=== PATIENT | male | born 1995 | race Caucasian/White ===

== ENCOUNTER 2017-01-13 03:18 | Emergency (ER) | payer OTHER | END 2017-01-13 04:50 | disposition left against medical advice (07) | LOC: ER1 03:18 | DX: Z53.21 Procedure and treatment not carried out due to patient leaving prior to being seen by health care provider (principal) ==

== ENCOUNTER → 2017-02-10 | Outpatient (CLI) | payer MEDICARE | LOC: KOH-I 01-27 10:00 | DX: M54.41 Lumbago with sciatica, right side (principal); M51.34 Other intervertebral disc degeneration, thoracic region; M51.86 Other intervertebral disc disorders, lumbar region; M25.78 Osteophyte, vertebrae | CPT/HCPCS: 72141; 72148 ==

== ENCOUNTER → 2017-02-13 | Outpatient (CLI) | payer MEDICARE | LOC: KOH-I 11:00 | DX: M51.34 Other intervertebral disc degeneration, thoracic region (principal); M51.24 Other intervertebral disc displacement, thoracic region | CPT/HCPCS: 72146 ==